=== PATIENT | male | born 1965 | race African-American/Black ===

== ENCOUNTER → 2018-05-13 11:40 | Outpatient (CLI) | payer OTHER ==
[2018-05-13 12:42] LABS: T4 THYROXINE 7.2 ug/dL (4.7-13.3); THYROID STIMULATING HORMONE 1.83 uIU/mL (0.36-3.74)
== END | disposition home or self-care (01) ==
LOC: D.LAB 11:40
PROVIDERS: Internal Medicine Gastroenterology
DX: R10.9 Unspecified abdominal pain (principal); K62.5 Hemorrhage of anus and rectum

== ENCOUNTER 2018-08-09 18:51 | Emergency (ER) | payer OTHER ==
[~2018-08-09] VITALS: Ht 182.9 cm; Wt 111.4 kg
[2018-08-09 18:59] VITALS: Ht 182.9 cm; Wt 111.4 kg
[2018-08-09] MEDS ORDERED: LISINOPRIL5 MG PO (19:05)
[2018-08-09] MEDS ORDERED: PROZAC20 MG PO (19:05)
[2018-08-09] MEDS ORDERED: BENZTROPINE MESY2 MG PO (19:05)
[2018-08-09] MEDS ORDERED: CELEXA20 MG PO (19:05)
[2018-08-09] MEDS ORDERED: TRAZODONE HCL100 MG PO (19:05)
[2018-08-09] MEDS ORDERED: INVEGA 3 MG ER T3 MG PO (19:06)
[2018-08-09] MEDS ORDERED: METOPROLOL TART25 MG PO (19:06)
[2018-08-09] MEDS ORDERED: NORVASC5 MG PO (19:06)
[2018-08-09] MEDS ORDERED: HALDOL5 MG PO (19:06)
[2018-08-09 19:32] LABS: BASOPHILS 0.4 % (0-2); EOSINOPHILS 1.8 % (0-7); HEMATOCRIT 40.1 % (42.0-54.0); HEMOGLOBIN 13.6 g/dL (13.5-17.5); IMMATURE GRANULOCYTES 0.6 % (0-5); LYMPHOCYTES 42.6 % (15-50); MCH 29.4 pg (26.0-34.0); MCHC 33.9 g/dL (31.0-37.0); MCV 86.6 fL (80.0-100.0); MEAN PLATELET VOLUME 9.8 fL (7.4-10.4); MONOCYTES 8.2 % (2-11); NEUTROPHILS 46.4 % (40-80); PLATELET COUNT 293 10x3/uL (130-400); RBC 4.63 10x6/uL (4.20-6.10); WBC 8.3 10x3/uL (4.8-10.8)
[2018-08-09 19:41] LABS: APTT 49.3 SECONDS (22.8-39.4); INR 1.49 (0.85-1.17); PROTIME 17.5 SECONDS (11.6-15.0)
[2018-08-09 20:04] LABS: ALKALINE PHOSPHATASE 62 U/L (46-116); ALT (SGPT) 27 U/L (10-68); BILIRUBIN - TOTAL 0.27 mg/dL (0.2-1.3); CALC OSMOLALITY 280 mosm/kg (275-300); CALCIUM 8.1 mg/dL (8.5-10.1); CARBON DIOXIDE 21.3 mmol/L (21.0-32.0); CHLORIDE - SERUM 108 mmol/L (98-107); CREATININE - SERUM 1.6 mg/dL (0.6-1.3); GLUCOSE 95 mg/dL (74-106); POTASSIUM - SERUM 3.9 mmol/L (3.5-5.1); PROTEIN - SERUM 5.9 g/dL (6.4-8.2); SODIUM 140 mmol/L (136-145); UREA NITROGEN 17 mg/dL (7-18); eGFR NON AFRICAN AMERICAN 49 mL/min (90-120)
[2018-08-09 20:12] LABS: MAGNESIUM - SERUM 1.7 mg/dL (1.8-2.4); THYROID STIMULATING HORMONE 0.6 uIU/mL (0.36-3.74)
[2018-08-09 20:16] LABS: CKMB 0.8 U/L (0.0-3.6); CREATINE KINASE 437 UL (21-232)
[2018-08-09 20:23] LABS: TROPONIN-I < 0.017 ng/mL (0.000-0.060)
[2018-08-09 20:51] VITALS: BP 118/74
[2018-08-09 20:55] LABS: APPEARANCE CLEAR (CLEAR); BILIRUBIN NEGATIVE (NEGATIVE); COLOR YELLOW (YELLOW); GLUCOSE NEGATIVE (NEGATIVE); KETONE NEGATIVE (NEGATIVE); NITRITE NEGATIVE (NEGATIVE); PROTEIN NEGATIVE (NEGATIVE); SPECIFIC GRAVITY 1.015 (1.005-1.020); UROBILINOGEN NORMAL (NORMAL)
== END 2018-08-09 20:48 | disposition home or self-care (01) ==
LOC: D.ER 18:51
PROVIDERS: Family Medicine
DX: R42 Dizziness and giddiness (principal); I10 Essential (primary) hypertension; K21.9 Gastro-esophageal reflux disease without esophagitis

== ENCOUNTER → 2018-08-20 08:39 | Outpatient (CLI) | payer OTHER ==
[2018-08-09 18:59] VITALS: BMI 33.3
[~2018-08-20 08:39] MED LIST: BENZTROPINE MESY2 MG PO; CELEXA20 MG PO; HALDOL5 MG PO; INVEGA 3 MG ER T3 MG PO; LISINOPRIL5 MG PO; METOPROLOL TART25 MG PO; NORVASC5 MG PO; PROZAC20 MG PO; TRAZODONE HCL100 MG PO
== END | disposition home or self-care (01) ==
LOC: D.NM 08-12 08:00
DX: R10.11 Right upper quadrant pain (principal)

== ENCOUNTER → 2018-08-23 09:05 | Outpatient (CLI) | payer OTHER ==
[2018-08-09 18:59] VITALS: BMI 33.3
== END | disposition home or self-care (01) ==
LOC: D.CT 09:05
DX: R10.11 Right upper quadrant pain (principal)

== ENCOUNTER → 2018-09-13 13:59 | Outpatient (CLI) | payer OTHER ==
[2018-08-09 18:59] VITALS: BMI 33.3
--- NOTE | ~2018-09-13 | ST ---
PATIENT:CORTNEY PALAFOX MEDICAL RECORD: [id number] SEX: M LOCATION:[facility] ORDER #: ADMISSION DATE: 09/13/18 AGE OF PATIENT: 53 REFERRING PHYSICIAN: INTERPRETING PHYSICIAN: AZUL TREVIÑO MD DATE OF SERVICE: 09/13/2018 TREADMILL STRESS TEST Baseline ECG is normal. Exercised for 8 minutes 27 seconds on Santi protocol, maximum heart rate is 149 beats per minute, greater than 85% max predicted. No ECG change ischemia. No symptoms of ischemia. No blood pressure on his exercise. No arrhythmia is noted. He had a good exercise tolerance for age. TRANSINT:[id number] Voice Confirmation ID: [id number] DOCUMENT ID: [id number] AZUL TREVIÑO MD at 1407 CC: [id number] DICTATION DATE: 09/16/18 1319 CONCEPT ARTIST: 09/16/18 1448 DEP CLI 09/13/[address] [address]
[~2018-09-13 13:59] MED LIST changes: +NORCO 10-325 TA1 TAB PO
[2018-09-28 10:06] VITALS: BMI 29.6
== END | disposition home or self-care (01) ==
LOC: D.HCCARDIO 13:59
DX: I20.9 Angina pectoris, unspecified (principal)

== ENCOUNTER 2018-09-28 09:05 | Day surgery (SDC) | payer OTHER ==
[2018-09-27 14:46] LABS: BASOPHILS 0.3 % (0-2); EOSINOPHILS 1.1 % (0-7); HEMOGLOBIN 14.2 g/dL (13.5-17.5); IMMATURE GRANULOCYTES 0.4 % (0-5); LYMPHOCYTES 39.1 % (15-50); MCH 29.2 pg (26.0-34.0); MCHC 33.8 g/dL (31.0-37.0); MCV 86.4 fL (80.0-100.0); MEAN PLATELET VOLUME 9.9 fL (7.4-10.4); MONOCYTES 7.8 % (2-11); NEUTROPHILS 51.3 % (40-80); PLATELET COUNT 314 10x3/uL (130-400); RBC 4.86 10x6/uL (4.20-6.10); RDW 13.2 % (11.5-14.5)
[2018-09-27 14:57] LABS: ANION GAP 11.5 mmol/L (8-16); CALCIUM 9.1 mg/dL (8.5-10.1); CARBON DIOXIDE 26.5 mmol/L (21.0-32.0); CREATININE - SERUM 1.4 mg/dL (0.6-1.3)
[~2018-09-28] VITALS: Ht 193 cm; Wt 106.6 kg
--- NOTE | ~2018-09-28 | OP ---
PATIENT NAME: CORTNEY PALAFOX MEDICAL RECORD: [id number] :69 LOCATION:D.[facility] ADMISSION DATE: SURGEON: BEN SCHMIDT MD DATE OF OPERATION: 09/28/2018 PREOPERATIVE DIAGNOSES: 1. Biliary dyskinesia. 2. Hypertension. 3. Hypercholesterolemia. 4. Asthma. POSTOPERATIVE DIAGNOSES: 1. Biliary dyskinesia. 2. Hypertension. 3. Hypercholesterolemia. 4. Asthma. PROCEDURE: Laparoscopic cholecystectomy. SURGEON: Ben Schmidt MD MANAGER PRIVATE: Mandie Duncan APRN REPORT OF OPERATION: The patient's abdomen was prepped and draped in sterile fashion. A skin incision was made just above the umbilicus. Vicryls #0 were placed in the fascia bilaterally and the fascia was incised with a #15 blade. I then bluntly entered the peritoneal cavity and placed a 12-mm Rosio port. Under direct visualization, a 5-mm trocar was placed in the epigastrium and two more 5-mm trocars were placed in the right subcostal region. The gallbladder was grasped and elevated. The cystic artery and cystic duct were dissected free and these were clipped proximally and distally, and ligated in standard fashion. The gallbladder was taken off the liver bed using electrocautery and placed into the right upper quadrant. Any bleeding from the liver bed was then treated with electrocautery. At this point, the ports and insufflation were then removed and the gallbladder was taken out through the umbilicus. The umbilical fascia was closed with interrupted #0 Vicryls times 3. The wounds were then irrigated out with normal saline and infused with 10 mL of 0.25% Marcaine with epinephrine. The skin incisions were then closed with subcutaneous 5-0 Monocryl and dressed appropriately. COMPLICATIONS: None. CONDITION: Stable. ANESTHESIA: General endotracheal and local. BLOOD LOSS: Minimal. TRANSINT:[id number] Voice Confirmation ID: [id number] DOCUMENT ID: [id number] OPERATIVE REPORT [id number] JAVYCORTNEY BEN ALVAREZ MD CC: NEHEMIAH RODRIGUEZ MD [id number] DICTATION DATE: 09/28/18 1337 MENTALLY RETARDED TEACHER: 09/28/18 14[address] [place] [address]
[~2018-09-28 09:05] MED LIST changes: -NORCO 10-325 TA1 TAB PO
[2018-09-28 10:06] VITALS: BP 124/72; Ht 193 cm; Wt 106.6 kg
[2018-09-28] MEDS ORDERED: NORCO 10-325 TA1 TAB PO (13:39)
== END 2018-09-28 16:25 | disposition home or self-care (01) ==
LOC: D.OPS 09:05
PROVIDERS: Surgery
DX: K81.1 Chronic cholecystitis (principal); I10 Essential (primary) hypertension; E78.00 Pure hypercholesterolemia, unspecified; J45.909 Unspecified asthma, uncomplicated; Z01.812 Encounter for preprocedural laboratory examination

== ENCOUNTER → 2019-04-19 11:26 | Outpatient (CLI) | payer MEDICAID ==
[~2019-04-19] VITALS: Ht 182.9 cm; Wt 106.4 kg
[~2019-04-19 11:26] MED LIST changes: +HYDROXYZINE HCL50 MG PO; +NORCO 10-325 TA1 TAB PO
[2019-04-19 11:55] VITALS: BP 127/58; Ht 182.9 cm; Wt 106.4 kg
--- NOTE | 2019-04-19 12:04 | NUR ---
PT NURSE PRESENT UPON ARRIVAL FOR SUICIDE ASSESSMENT. DR. GERBER CONSULTED IN REGARDS OF ASSESSMENT FINDINGS AND BEHAVIORS AT 1245.
--- NOTE | 2019-04-19 12:07 | NUR ---
1147 PT WITH POSITIVE SUICIDE RISK SCREENING, HUGH SUPERSIVOR AND [employer] PRODUCTION MANAGER IMMEDIATELY NOTIFIED, PT KEPT IN DIRECT OBSERVATION OF NURSE WHILE AWAITING BEHAVIORAL HEALTH DIRECTOR OF COMMUNICATIONS. 1204 BEHAVIORAL HEALTH DIRECTOR OF COMMUNICATIONS HERE TO SCREEN PT.
--- NOTE | 2019-04-19 12:07 | NUR ---
PT NURSE PRESENT AT BEDSIDE AT THIS TIME FOR OBSERVATION AND CLOSE MONITORING. DR. GERBER IN ROOM FOR CONSULT.
--- NOTE | 2019-04-19 12:40 | NUR ---
BEHAVIORAL HEALTH SCREEENING COMPLETED BY BEHAVIORAL HEALTH ASSOCIATE PROFESSOR OF ART, PT IN DIRECT OBSERVATION OF NURSE. DR TREVIÑO HAS BEEN NOTIFIED AND PT'S PROCEDURE CANCELLED FOR TODAY BY DR TREVIÑO.
--- NOTE | 2019-04-19 12:49 | NUR ---
DR TIAN HERE EVALUATING PT.
--- NOTE | 2019-04-19 13:07 | NUR ---
PT CONSULTED BY DR. GERBER. PT TRANSFERRED TO ER FOR SUICIDE IDEATION PER DR. GERBER. 1:1 SITTER OBSERVATION ORDERED. SITTER AT BEDSIDE. CHARGE NURSE AND ATTENDING NOTIFIED IN REGARDS TO ASSESSMENT FINDINGS. RESOURCES GIVEN TO PT AND SAFETY PLAN INITIATED.
--- NOTE | 2019-04-19 13:10 | NUR ---
PT TRANSFERRED TO ER SAFE RM 21 FOR SUICIDE WATCH PER DR. GERBER. 1:1 SITTER OBSERVATION ORDERED. SITTER AT BEDSIDE. NOTIFIED CHARGE NURSE AND ATTENDING IN REGARDS TO ASSESSMENT FINDINGS.
--- NOTE | 2019-04-19 13:10 | NUR ---
PT SUICIDE ASSESSMENT COMPLETED IN CUT PRESS OPERATOR. PT CONSULTED WITH DR. GERBER. PT TRANSFERRED TO ER SAFE RM 21. 1:1 SITTER OBSERVATION ORDERED. SITTER AT BEDSIDE. NOTIIFED CHARGE NURSE AND ATTENDING IN REGARDS TO ASSESSMENT FINDINGS. RESOURCES GIVEN TO PT AND SAFETY PLAN INITIATED.
--- NOTE | 2019-04-19 13:12 | NUR ---
1257 PT TRANSFERRED TO ER VIA WC BY STAFF MEMBERS X2. PT IS ALERT, DENIES ANY C/O CHEST PAINS. IS AGREEABLE TO ER TRANSFER FOR FURTHER EVALUATION AND TREATMENT. ALL PERSONAL BELONGINGS BAGGED AND HAVE BEEN GIVEN TO ER NURSE- ONE T SHIRT, A PAIR OF SHOES AND A PAIR OF PANTS. PT'S SISTER AWARE OF PT TRANSFER TO ER.
--- NOTE | 2019-04-20 13:27 | CN ---
PATIENT NAME:CORTNEY PALAFOX MEDICAL RECORD: [id number] : 69 LOCATION:[facility] ADMIT DATE: ACCOUNT: [id number] CONSULTING PHYSICIAN: RADHA GERBER MD REFERRING PHYSICIAN: AZUL TREVIÑO MD DATE OF CONSULTATION: 04/19/2019 PSYCHIATRIC CONSULTATION IDENTIFYING DATA: The patient is 53 years old and he is in the clinical lab scientist for a procedure. CHIEF COMPLAINT: Suicidal thoughts. HISTORY OF PRESENT ILLNESS: I am asked to see the patient because prior to having his cardiac catheterization, he has made some suicidal statements. The patient is 53. He has a history of mental illness. He has been diagnosed with schizophrenia and is followed on an outpatient basis by the local [facility]. He is prescribed antipsychotic medication. He is hearing voices telling him to kill himself and to attack others. He says this has been going on for several weeks. Yesterday, he was very upset and was going to jump into traffic in front of a car to kill himself because the voices were telling him to do so. He does have a drug history, but he has not used drugs for several years. He has attempted to harm himself in the past and has a very serious scar on his right wrist where he has cut himself in a suicide attempt. MENTAL STATUS EXAMINATION: The patient is awake, alert and oriented fully. His mood is flat. His affect is constricted. Thought processes are circumstantial. Memory, concentration, and abstraction abilities are at least moderately impaired, and he endorses thoughts of harming himself and others as described above. He is also endorsing command auditory hallucinations. ASSESSMENT: Schizophrenia, chronic undifferentiated. PLAN: The patient should be 1:1 with a sitter and transferred to acute inpatient psychiatric care as soon as it is reasonably practical to do so. TRANSINT:[id number] Voice Confirmation ID: [id number] DOCUMENT ID: [id number] RADHA GERBER MD at 1327 CC: [id number] DICTATION DATE: 04/19/19 1314 SCULLION CHIEF: 04/19/19 1401 DEP CLI 04/19/19 [id number] [place] [address]
== END | disposition home or self-care (01) ==
LOC: D.CATH 11:26
PROVIDERS: ATTEND Internal Medicine Interventional Cardiology
DX: I20.9 Angina pectoris, unspecified (principal); I10 Essential (primary) hypertension; R45.851 Suicidal ideations; Z53.09 Procedure and treatment not carried out because of other contraindication; Z01.812 Encounter for preprocedural laboratory examination

== ENCOUNTER 2019-04-19 13:10 | Inpatient (IN) | payer MEDICAID ==
[~2019-04-19] VITALS: Ht 182.9 cm; Wt 103.3 kg
[2019-04-19] VITALS (12 sets, daily range): BP systolic 117–141; BP diastolic 72–90; Ht 182.9 cm; Wt 103.3 kg
[2019-04-19 13:57] LABS: BASOPHILS 0.3 % (0-2); EOSINOPHILS 2.6 % (0-7); HEMATOCRIT 40.3 % (42.0-54.0); HEMOGLOBIN 13.3 g/dL (13.5-17.5); IMMATURE GRANULOCYTES 0.2 % (0-5); LYMPHOCYTES 45.2 % (15-50); MCH 28.7 pg (26.0-34.0); MEAN PLATELET VOLUME 10.5 fL (7.4-10.4); MONOCYTES 9.4 % (2-11); NEUTROPHILS 42.3 % (40-80); RBC 4.63 10x6/uL (4.20-6.10); RDW 13.1 % (11.5-14.5); WBC 6.5 10x3/uL (4.8-10.8)
[2019-04-19 14:08] LABS: PLATELET COUNT 232 10x3/uL (130-400)
[2019-04-19 14:15] LABS: ALBUMIN 3.7 g/dL (3.4-5.0); ALKALINE PHOSPHATASE 79 U/L (46-116); ALT (SGPT) 25 U/L (10-68); BILIRUBIN - TOTAL 0.51 mg/dL (0.2-1.3); CALC OSMOLALITY 284 mosm/kg (275-300); CALCIUM 8.9 mg/dL (8.5-10.1); CARBON DIOXIDE 25.1 mmol/L (21.0-32.0); CHLORIDE - SERUM 108 mmol/L (98-107); CREATININE - SERUM 1.3 mg/dL (0.6-1.3); GLUCOSE 95 mg/dL (74-106); POTASSIUM - SERUM 4.1 mmol/L (3.5-5.1); PROTEIN - SERUM 7.2 g/dL (6.4-8.2); SODIUM 141 mmol/L (136-145); UREA NITROGEN 23 mg/dL (7-18); eGFR NON AFRICAN AMERICAN 62 mL/min (90-120)
[2019-04-19 14:23] LABS: CREATINE KINASE 314 UL (21-232); MAGNESIUM - SERUM 2.2 mg/dL (1.8-2.4); TROPONIN-I < 0.017 ng/mL (0.000-0.060)
[2019-04-19 14:32] LABS: APPEARANCE CLEAR (CLEAR); BILIRUBIN NEGATIVE (NEGATIVE); COLOR YELLOW (YELLOW); GLUCOSE NEGATIVE (NEGATIVE); KETONE NEGATIVE (NEGATIVE); NITRITE NEGATIVE (NEGATIVE); PROTEIN NEGATIVE (NEGATIVE); SPECIFIC GRAVITY 1.015 (1.005-1.020)
[2019-04-19 14:46] LABS: APTT 36.9 SECONDS (22.8-39.4); INR 1.21 (0.85-1.17); PROTIME 14.8 SECONDS (11.6-15.0)
[2019-04-19 14:47] LABS: D-DIMER-QUANTITATIVE < 0.27 ug/mLFEU (0.20-0.54)
[2019-04-19 14:47] LABS: UDS - AMPHET NEGATIVE QUAL (NEGATIVE); UDS - BARB NEGATIVE QUAL (NEGATIVE); UDS - BENZO NEGATIVE QUAL (NEGATIVE); UDS - COCAINE NEGATIVE QUAL (NEGATIVE); UDS - OPIATE NEGATIVE QUAL (NEGATIVE); UDS - PCP NEGATIVE QUAL (NEGATIVE); UDS - THC NEGATIVE QUAL (NEGATIVE)
--- NOTE | 2019-04-19 16:40 | NUR ---
REPORT RECIEVED. PATIENT BEING TRANSFERED TO ICU.
--- NOTE | 2019-04-19 17:00 | NUR ---
ADMISSION ASSESMENT COMPLETED. SUICIDE RISK ASSESMENT COMPLETED. VSS. SITTER AT BEDSIDE. EVERYTHING OUT OF ROOM. SUICIDE PRECAUTIONS IN PLACE. WILL CONTINUE TO MONITOR.
--- NOTE | 2019-04-19 17:30 | NUR ---
CONSULT CALLED TO DR. ARTEAGA, NO INTERVENTION IS NEEDED AT THIS TIME,
[2019-04-19 17:31] LABS: % SATURATION 43 % (15-55); IRON 102 ug/dl (35-150); TOTAL IRON BIND CAPACITY 233 ug/dl (260-445); UNSAT IRON BIND CAPACITY 131 ug/dl (150-375)
--- NOTE | 2019-04-19 17:35 | NUR ---
UPDATE CALLED TO DR. SALAZAR, PT IS MEDICALLY STABLE TO FIND PSYCHIATRIC PLACEMENT AT THIS TIME
--- NOTE | 2019-04-19 17:47 | NUR ---
CHART FAXED TO TRANSFER CENTER AT THIS TIME
--- NOTE | 2019-04-19 19:15 | NUR ---
Received patient resting in bed with eyes open and sitter at bedside, assessment completed per flowsheet. Patient AO x4, calm and cooperative. Patient denies intent to harm self/other at this time, relaxed and calm. S1/S2 noted NSR on telemetry with HR 64, rythmic and regular. Breathing is even/unlabored on room air with O2 sat 96%, lung sounds clear throughout. Abdomen is round/soft with bowel sounds active x4, non-tender. All pulses palpable with cap refill < 3 sec, skin warm/dry. Denies pain or other needs, see flowsheet for details. All VSS and will continue to monitor.
--- NOTE | 2019-04-19 19:30 | NUR ---
Spoke to Transfer Center, packets sent out to multiple locations and awaiting response. Awaiting return call, patient ready to transfer when notified.
[2019-04-19 20:15] LABS: CKMB 1.1 U/L (0.0-3.6); CREATINE KINASE 280 UL (21-232)
[2019-04-19 20:19] LABS: TROPONIN-I < 0.017 ng/mL (0.000-0.060)
--- NOTE | 2019-04-19 21:00 | NUR ---
HS meds given without difficulty, patient resting in bed with sitter at bedside. Denies pain or other needs, all VSS and will continue to monitor.
--- NOTE | 2019-04-19 23:00 | NUR ---
Reassessment completed per flowsheet, no changes noted from previous assessment. Patient denies intent to harm self/others, sitter at bedside. S1/S2 noted NSR on telemetry with HR 62, rythmic and regular. Breathing is even/unlabored on room air with O2 sat 95%, lung sounds clear throughout. All pulses palpable with cap refill < 3 sec, skin warm/dry. Denies pain or other needs, see flowsheet for details. All VSS and will continue to monitor.
[2019-04-20] VITALS (9 sets, daily range): BP systolic 108–133; BP diastolic 67–82
--- NOTE | 2019-04-20 01:00 | NUR ---
Patient sleeping in bed with sitter at bedside, no s/s of distress at this time. All VSS and will continue to monitor.
--- NOTE | 2019-04-20 03:05 | NUR ---
Reassessment completed per flowsheet, no changes noted from previous assessment. S1/S2 noted Sinus Milind on telemetry with HR 58, rythmic and regular. Breathing is even/unlabored on room air with O2 sat 96%, lung sounds clear throughout. All pulses palpable with cap refill < 3 sec, skin warm/dry. Patient denies intent to harm self/others at this time, sitter at bedside. See flowsheet for details, all VSS and will continue to monitor.
[2019-04-20 03:07] LABS: HEMATOCRIT 37.5 % (42.0-54.0); HEMOGLOBIN 12.5 g/dL (13.5-17.5); MCH 28.8 pg (26.0-34.0); MCHC 33.3 g/dL (31.0-37.0); MCV 86.4 fL (80.0-100.0); MEAN PLATELET VOLUME 10.1 fL (7.4-10.4); PLATELET COUNT 223 10x3/uL (130-400); RBC 4.34 10x6/uL (4.20-6.10); WBC 6.6 10x3/uL (4.8-10.8)
[2019-04-20 03:24] LABS: ALBUMIN 3.2 g/dL (3.4-5.0); ALKALINE PHOSPHATASE 69 U/L (46-116); ALT (SGPT) 23 U/L (10-68); BILIRUBIN - TOTAL 0.43 mg/dL (0.2-1.3); CALC OSMOLALITY 282 mosm/kg (275-300); CHLORIDE - SERUM 108 mmol/L (98-107); CKMB 0.9 U/L (0.0-3.6); CREATINE KINASE 244 UL (21-232); CREATININE - SERUM 1.3 mg/dL (0.6-1.3); GLUCOSE 89 mg/dL (74-106); POTASSIUM - SERUM 3.9 mmol/L (3.5-5.1); PROTEIN - SERUM 6.3 g/dL (6.4-8.2); SODIUM 141 mmol/L (136-145); UREA NITROGEN 21 mg/dL (7-18); eGFR NON AFRICAN AMERICAN 62 mL/min (90-120)
[2019-04-20 03:25] LABS: TROPONIN-I < 0.017 ng/mL (0.000-0.060)
[2019-04-20 03:57] LABS: BASOPHILS 1 % (0-2); EOSINOPHILS 2 % (0-7); LYMPHOCYTES 54 % (15-50); MONOCYTES 4 % (2-11); NEUTROPHILS 38 % (40-80); PLATELET ESTIMATE NORMAL
--- NOTE | 2019-04-20 05:00 | NUR ---
Patient sleeping in bed with eyes closed, sitter at bedside. No s/s of distress at this time, all VSS and will continue to monitor.
--- NOTE | 2019-04-20 07:15 | NUR ---
REPORT RECIEVED, SHIFT ASSESSMENT COMPLETE, PT IS RESTING COMFORTABLY AT THIS TIME, DENIES ANY WANTS OR NEEDS, VSS, 1:1 SITTER, CALL LIGHT IN REACH
--- NOTE | 2019-04-20 09:05 | NUR ---
PT CONTINUES TO HAVE SUICIDAL IDEATION WITHOUT A SPECIFIC PLAN AT THIS TIME. HE STATED THAT HE HAS THOUGHT OF DIFFERENT WAYS BUT NOTHING SPECIFIC. FLAT AFFECT AND POOR EYE CONTACT NOTED DURING ASSESSMENT. SITTER AT BEDSIDE FOR CONTINUED 1:1 MONITORING.
--- NOTE | 2019-04-20 09:15 | NUR ---
AM MEDS GIVEN, BREAKFAST TRAY EATEN,
--- NOTE | 2019-04-20 10:34 | NUR ---
UPDATE GIVEN TO MAGNUS (SISTER) OVER PHONE,
--- NOTE | 2019-04-20 12:02 | MORECARE ---
CASE MANAGEMENT DISCHARGE SUMMARY PATIENT: CORTNEY PALAFOX UNIT: [id number] ADM DATE: 04/19/19 AGE: 53 : 69 SEX: M ROOM/BED: D.2305 AUTHOR: RAFAELA HUBBARD PHYSICIAN: REFERRING PHYSICIAN: JUSTEN SALAZAR MD DATE OF SERVICE: 04/20/19 Discharge Plan Patient Name: CORTNEY PALAFOX [facility] [facility] 1965 Planned Disposition: Psych facility Anticipated Discharge Date: Discharge Date: Expected LOS: Initial Reviewer: [email or web address] Initial Review Date: 04/19/2019 Generated: 04/20/19 1:02 pm Comments DCP- Discharge Planning Updated by [email or web address]: Sonal Brandon on 04/20/19 10:[address] Plan is for patient to discharge to Inpatient Psych Facility - Patient has been accepted to [facility] awaiting to get room number. Transfer center will set up transfer to facility. CM will continue to follow and assist as needed with discharge planning needs. Patient Name: CORTNEY PALAFOX Page [phone] at 1202 All edits/amendments must be made on the electronic document DICTATION DATE: 04/20/19 1202 CAMPUS REP: JOSE 04/20/19 1202 RPT#: [id number] DC DATE: STATUS: ADM IN [facility] [address] [place] [address] END OF REPORT
--- NOTE | 2019-04-20 13:30 | NUR ---
REPORT CALLED TO MK CHILDERS RN AT [facility]
--- NOTE | 2019-04-20 17:44 | NUR ---
PATIENT DISCHARGED FROM UNIT IN CARE OF AMBULANCE PERSONNEL FOR TRANSPORT TO INPATIENT PSYCH FACILITY.
--- NOTE | 2019-04-20 17:45 | NUR ---
AMBULANCE HERE FOR PT
--- NOTE | 2019-04-21 16:45 | MORECARE ---
CASE MANAGEMENT DISCHARGE SUMMARY PATIENT: CORTNEY PALAFOX UNIT: [id number] ADM DATE: 04/19/19 AGE: 53 : 69 SEX: M ROOM/BED: D.2305 AUTHOR: RAFAELA HUBBARD PHYSICIAN: REFERRING PHYSICIAN: JUSTEN SALAZAR MD DATE OF SERVICE: 04/21/19 Discharge Plan Patient Name: CORTNEY PALAFOX [facility] [facility] 1965 Planned Disposition: Psych facility Anticipated Discharge Date: Discharge Date: 04/20/2019 Expected LOS: Initial Reviewer: [email or web address] Initial Review Date: 04/19/2019 Generated: 04/21/19 5:45 pm Comments DCP- Discharge Planning Updated by [email or web address]: Sonal Brandon on 04/20/19 10:[address] Plan is for patient to discharge to Inpatient Psych Facility - Patient has been accepted to [facility] Unit awaiting to get room number. Transfer center will set up transfer to facility. CM will continue to follow and assist as needed with discharge planning needs. Last DP export: 04/20/19 11:02 a Patient Name: CORTNEY PALAFOX Page [phone] at 1645 All edits/amendments must be made on the electronic document DICTATION DATE: 04/21/191643 SPECIAL DELIVERY MESSENGER: JSOE 04/21/194 RPT#: [id number] DC DATE:04/20/19 STATUS: DIS IN [facility] [address] [place] [address] END OF REPORT
== END 2019-04-20 17:45 | disposition short-term general hospital (02) | DRG 881 ==
LOC: D.ER 13:10 → D.EDHOLD 14:03 → D.ICU 14:03
PROVIDERS: Family Medicine; ADMIT Internal Medicine Nephrology; ATTEND Internal Medicine Nephrology
DX: F32.9 Major depressive disorder, single episode, unspecified (principal); R45.851 Suicidal ideations; F20.9 Schizophrenia, unspecified; D50.9 Iron deficiency anemia, unspecified; I10 Essential (primary) hypertension